=== PATIENT | male | born 1960 | race Caucasian/White ===

== ENCOUNTER 2025-02-15 19:24 | Observation (INO) ==
[2025-02-15] MEDS: fentaNYL citrate PF 100 MCG/2 ML VIAL IV STA ×2 (20:04→20:51)
[2025-02-15 20:14] LABS: Basophils # (auto) 0.05 K/uL (0.00-0.20); Basophils % (auto) 0.4 %; Eosinophils % (auto) 0.8 %; Hematocrit (blood only) 46.9 % (42.0-52.0); Hemoglobin 16.4 g/dl (14.0-18.0); Immature Granulocytes # (auto) 0.04 K/uL (0.01-0.20); Immature Granulocytes % (auto) 0.3 %; Lymphocytes # (auto) 2.93 K/uL (1.20-3.40); Lymphocytes % (auto) 22.4 %; Mean Corpuscular Hemoglobin 30.9 pg (25.0-34.0); Mean Corpuscular Volume 88.5 fL (80.0-100.0); Mean Platelet Volume 9.4 fL (9.4-12.4); Monocytes # (auto) 1.35 K/uL (0.11-0.59); Monocytes % (auto) 10.3 %; Neutrophils % (auto) 65.8 %; Platelet Count 551 K/uL (130-400); RDW Coefficient of Variation 13.4 % (11.5-14.5); RDW Standard Deviation 43.6 fL (36.4-46.3); White Blood Count 13.07 K/ul (4.8-10.8)
--- NOTE | 2025-02-15 20:22 | Emergency Department Note ---
Impression & Plan Left lateral abdominal pain, Chronic pain syndrome, Nausea ED Provider Note Provider: Artem Porter MD CHIEF COMPLAINT: Left abdominal pain and nausea HISTORY OF PRESENT ILLNESS: Patient is a 64-year-old gentleman significant history of postherpetic neuralgia from shingles outbreak on his left abdomen and flank in 2021 presenting here today complaining of severe pain here with associated nausea. No new trauma or syncope. Limited intake over the past week. Has been through extensive evaluation in the past including spinal injections and pain management as well as a spinal stimulator placed in December. This has actually worsened thing although there was some improvement with the temporary spinal stimulator. Has been using Lyrica without improvement. Using Zofran at home for nausea. States he is having decreased intake over the past week. Stimulators been turned off for the past week in consultation with the stimulator in store representative. Pain is just too severe. PAST MEDICAL HISTORY: As noted above MEDICATIONS: Reviewed home medication SOCIAL HISTORY: PHYSICAL EXAM: GENERAL: alert and oriented a bit tremulous anduncomfortable in appearance curled in a ball in the stretcher. Head: normocephalic and atraumatic EYES: No injection, discharge or icterus. NECK: Trachea midline. ENT: Mucous membranes pink and moist. LUNGS: Airway patent. No retractions. Breath sounds clear with good air entry bilaterally. HEART: Regular rate and rhythm. No chest wall tenderness ABDOMEN: Soft maybe some very slight left-sided abdominal tenderness. No distention. SKIN: Acyanotic, warm, dry, without rashes EXTREMITIES: Without swelling, tenderness or deformity NEUROLOGICAL: No focal deficits. No aphasia. No facial droop or slurred speech. Normal strength and tone in the extremities. Sensation to gross touch normal. EK bpm normal sinus rhythm. No PVC or PAC. No acute ST segment elevation or depression with left intrafascicular block and QTc 431. CONTINUOUS CARDIAC MONITORING: was ordered and showed a heart rate of 50s-70s bpm in normal sinus rhythm/sinus bradycardia PDMP was checked without noted issue. Patient's laboratory studies and imaging reviewed. Differential includes post herpetic neuralgia appendicitis, infections, diverticulitis, UTI, obstruction, mesenteric ischemia, aortic pathology, inflammatory bowel disease, renal colic, PUD, pancreatitis, biliary pathology, hernia, volvulus, constipation, as well as other pathologies. IMPRESSION/MEDICAL DECISION MAKING: No trauma history. Patient is significant discomfort. Seems likely exacerbation of his underlying postherpetic neuralgia given location and history. Surgery in December but no other significant neurodeficit reported. Does not seem altered or meningitic. Will complete basic labs and a CT scan to exclude other occult pathology such as diverticulitis, perforation, or obstruction as well as basic blood work here. Given some IV fluid and pain medicine and nausea medicine. Some hand cramping reported with a blood pressure cuff and questionably may have an electrolyte issue. No reported chest pain or significant shortness of breath and doubt cardiac pulmonary etiology. Blood work here today without thrombocytopenia (actually mild thrombocytosis) or anemia. Mild leukocytosis of 13 nonspecific. Electrolytes troponin and creatinine lipase without significant abnormality indicative of acute kidney injury, heart injury, pancreatitis noted. No transaminitis concerning for liver issues today. UA not indicative of infection. Is a bit concentrated again receiving IV fluids here. No severe again electrolyte abnormalities noted. Ketamine infusion are lysed as he still with significant pain. Pain improved greatly but the patient still with some nausea and feeling like he is quivering. Given some Reglan. Given his intractable symptoms discussed with the hospitalist team for further care and observation. Given the hour some delay for radiology read of his abdomen pelvis scan. DIAGNOSIS: Intractable left abdominal/flank pain, nausea, hypomagnesemia DISPOSITION: Hospitalist will evaluate Patient was agreeable with this plan. Past Med/Surg History Problem List (Updated 02/16/25 @ 00:31 by Artem Porter M.D.) Nausea (Acute) Left lateral abdominal pain (Acute) Chronic pain syndrome (Acute) Tinnitus ETD (eustachian tube dysfunction) Ear fullness Dyslipidemia Postherpetic neuralgia DJD of left shoulder Medical History Herpes zoster Surgical History S/P splenectomy S/P arthroscopy of right shoulder Family History Mother Stroke Hypertension Other Esophageal cancer No family history of adverse response to anesthesia No family history of bleeding disorder Denies family history of Prostate cancer Breast cancer Asthma Social History Smoking Status: Never smoker Second Hand Exposure: No; Do You Dip or Chew Tobacco: No; Hx Alcohol Use: Yes Alcohol type: beer and wine Alcohol Intake Frequency: Monthly or Less Hx Substance Use: No Preferred Language: [place] Hearing Ability: Normal marital status: / Current Living Situation: Alone current occupational status: retired Feels Safe at Home: Yes Diet: regular caffeine: Yes Dental Care, Regularly: Yes Physical Activity Frequency: 5-6 Times per Week Seatbelt Use: always Sunscreen Use: No Assistive Devices: None Allergies Allergies Allergy/AdvReac Type Severity Reaction Status Date / Time procaine Allergy Unknown swelling Verified 12/26/24 13:22 as a child Home Meds Home Medications Medication Instructions Recorded Confirmed acetaminophen 500 mg tablet 1,000 mg PO Q6H PRN Pain 06/11/24 02/16/25 rosuvastatin 5 mg tablet 5 mg PO DAILY 06/11/24 02/16/25 ondansetron 4 mg disintegrating 12 mg translingual .EVERY 24 HOURS 02/15/25 02/15/25 tablet Previous Rx's Medication Instructions Recorded lidocaine 5 % topical patch 1 patch topical DAILY #30 ea 01/19/24 naproxen 500 mg tablet (Naprosyn) 500 mg PO BID PRN pain #30 tabs 09/17/24 pregabalin 200 mg capsule 200 mg PO Q12H #60 caps 10/05/24 Results & Data (ED) Vital Signs Vital Signs - 24 hr 02/15/25 19:26 02/15/25 20:31 02/15/25 20:48 Temperature 36.8 C Temperature Source Oral Pulse Rate 96 H 72 Pulse Rate [Apical] Pulse Rhythm [Apical] Pulse Strength [Apical] Respiratory Rate 18 Respiratory Effort / Characteristics Non-Labored Spontaneous Respiratory Depth Normal Respiratory Pattern Regular Blood Pressure 155/98 H 137/83 Blood Pressure [Left Arm] Blood Pressure Mean 117 106 Blood Pressure Mean [Left Arm] Blood Pressure Position [Left Arm] Pulse Oximetry 98 Oxygen Delivery Method Room Air Oxygen Flow Rate Sepsis Recent Fever Within 48 Hours No Sepsis New/Unexplained Change in Mental Status N/A Sepsis Action Taken by Nursing No Action Required End-Tidal CO2 02/15/25 20:51 02/15/25 20:54 02/15/25 21:02 Temperature Temperature Source Pulse Rate 60 Pulse Rate [Apical] 59 L Pulse Rhythm [Apical] Regular Pulse Strength [Apical] Normal Respiratory Rate 23 Respiratory Effort / Characteristics Non-Labored Respiratory Depth Normal Respiratory Pattern Regular Blood Pressure 137/80 Blood Pressure [Left Arm] 137/83 Blood Pressure Mean 102 Blood Pressure Mean [Left Arm] 101 Blood Pressure Position [Left Arm] Lying Pulse Oximetry 95 95 Oxygen Delivery Method Room Air Room Air Oxygen Flow Rate Sepsis Recent Fever Within 48 Hours Sepsis New/Unexplained Change in Mental Status Sepsis Action Taken by Nursing End-Tidal CO2 02/15/25 21:27 02/15/25 21:30 02/15/25 22:00 Temperature Temperature Source Pulse Rate 57 L 54 L 57 L Pulse Rate [Apical] Pulse Rhythm [Apical] Pulse Strength [Apical] Respiratory Rate 21 20 24 Respiratory Effort / Characteristics Respiratory Depth Respiratory Pattern Blood Pressure 127/79 Blood Pressure [Left Arm] Blood Pressure Mean 95 Blood Pressure Mean [Left Arm] Blood Pressure Position [Left Arm] Pulse Oximetry 94 95 94 Oxygen Delivery Method Room Air Room Air Room Air Oxygen Flow Rate Sepsis Recent Fever Within 48 Hours Sepsis New/Unexplained Change in Mental Status Sepsis Action Taken by Nursing End-Tidal CO2 02/15/25 22:30 02/15/25 22:32 02/15/25 22:33 Temperature Temperature Source Pulse Rate 86 58 L Pulse Rate [Apical] Pulse Rhythm [Apical] Pulse Strength [Apical] Respiratory Rate 20 18 Respiratory Effort / Characteristics Respiratory Depth Respiratory Pattern Blood Pressure 129/74 Blood Pressure [Left Arm] Blood Pressure Mean 89 Blood Pressure Mean [Left Arm] Blood Pressure Position [Left Arm] Pulse Oximetry 93 96 Oxygen Delivery Method Room Air Nasal Cannula Oxygen Flow Rate 2 Sepsis Recent Fever Within 48 Hours Sepsis New/Unexplained Change in Mental Status Sepsis Action Taken by Nursing End-Tidal CO2 02/15/25 23:40 02/15/25 23:45 02/15/25 23:50 Temperature Temperature Source Pulse Rate Pulse Rate [Apical] 68 63 67 Pulse Rhythm [Apical] Pulse Strength [Apical] Respiratory Rate 24 24 18 Respiratory Effort / Characteristics Non-Labored Spontaneous Non-Labored Spontaneous Non-Labored Spontaneous Respiratory Depth Normal Normal Normal Respiratory Pattern Regular Regular Regular Blood Pressure Blood Pressure [Left Arm] 123/84 124/85 130/90 Blood Pressure Mean Blood Pressure Mean [Left Arm] 97 98 103 Blood Pressure Position [Left Arm] Pulse Oximetry 97 96 96 Oxygen Delivery Method Nasal Cannula Nasal Cannula Nasal Cannula Oxygen Flow Rate 2 2 2 Sepsis Recent Fever Within 48 Hours Sepsis New/Unexplained Change in Mental Status Sepsis Action Taken by Nursing End-Tidal CO2 27 30 28 02/15/25 23:55 02/16/25 00:00 02/16/25 00:05 Temperature Temperature Source Pulse Rate Pulse Rate [Apical] 62 65 58 L Pulse Rhythm [Apical] Pulse Strength [Apical] Respiratory Rate 20 16 20 Respiratory Effort / Characteristics Non-Labored Non-Labored Spontaneous Non-Labored Spontaneous Respiratory Depth Normal Normal Normal Respiratory Pattern Regular Regular Regular Blood Pressure Blood Pressure [Left Arm] 137/91 141/87 H 137/81 Blood Pressure Mean Blood Pressure Mean [Left Arm] 106 105 99 Blood Pressure Position [Left Arm] Pulse Oximetry 97 97 97 Oxygen Delivery Method Nasal Cannula Nasal Cannula Nasal Cannula Oxygen Flow Rate 2 2 2 Sepsis Recent Fever Within 48 Hours Sepsis New/Unexplained Change in Mental Status Sepsis Action Taken by Nursing End-Tidal CO2 30 31 28 02/16/25 00:10 Temperature Temperature Source Pulse Rate Pulse Rate [Apical] 83 Pulse Rhythm [Apical] Pulse Strength [Apical] Respiratory Rate 18 Respiratory Effort / Characteristics Non-Labored Spontaneous Respiratory Depth Normal Respiratory Pattern Regular Blood Pressure Blood Pressure [Left Arm] 117/88 Blood Pressure Mean Blood Pressure Mean [Left Arm] 97 Blood Pressure Position [Left Arm] Pulse Oximetry 96 Oxygen Delivery Method Nasal Cannula Oxygen Flow Rate 2 Sepsis Recent Fever Within 48 Hours Sepsis New/Unexplained Change in Mental Status Sepsis Action Taken by Nursing End-Tidal CO2 29 Laboratory Data 02/15/25 19:52 02/15/25 21:01 Lab Results 02/15/25 02/15/25 02/15/25 Range/Units 19:52 20:23 21:01 WBC 13.07 H (4.8-10.8) K/ul RBC 5.30 (4.70-6.10) M/uL Hgb 16.4 (14.0-18.0) g/dl POC Hgb 16.0 (14.0-18.0) g/dl Hct 46.9 (42.0-52.0) % POC Hct 47 (42-52) % MCV 88.5 (80.0-100.0) fL MCH 30.9 (25.0-34.0) pg MCHC 35.0 (32.0-36.0) g/dL RDW Std Deviation 43.6 (36.4-46.3) fL RDW Coeff of Torri 13.4 (11.5-14.5) % Plt Count 551 H (130-400) K/uL MPV 9.4 (9.4-12.4) fL Immature Gran % (Auto) 0.3 % Neut % (Auto) 65.8 % Lymph % (Auto) 22.4 % [place] % (Auto) 10.3 % Eos % (Auto) 0.8 % Baso % (Auto) 0.4 % Neut # (Auto) 8.60 H (1.40-6.50) K/uL Lymph # (Auto) 2.93 (1.20-3.40) K/uL [place] # (Auto) 1.35 H (0.11-0.59) K/uL Eos # (Auto) 0.10 (0.00-0.50) K/uL Baso # (Auto) 0.05 (0.00-0.20) K/uL Immature Gran # (Auto) 0.04 (0.01-0.20) K/uL PT 10.3 (9.0-12.0) Seconds INR 0.9 (0.9-1.1) POC Sodium 143 (135-144) mmol/L Sodium Cancelled 140 POC Potassium 3.9 (3.3-5.0) mmol/L Potassium Cancelled 3.7 POC Chloride 108 (101-112) mmol/L Chloride Cancelled 110 H Carbon Dioxide Cancelled 21 POC Total CO2 20 L (24-31) mmol/L Anion Gap Cancelled 9 POC Anion Gap 20.0 (16-25) mmol/L POC BUN 14 (7-18) mg/dl BUN Cancelled 14 Creatinine Cancelled 0.92 POC Creatinine 1.0 (0.6-1.3) mg/dl Est Cr Clr Drug Dosing Cancelled 69.6 eGFR Cancelled 92.31 BUN/Creatinine Ratio Cancelled 15.2 Glucose Cancelled 96 POC Glucose (other) 106 H (70-99) mg/dl Calcium Cancelled 9.2 POC Ioniz Calcium Janet 1.19 (1.12-1.32) mmol/l Magnesium Cancelled 1.6 L Total Bilirubin Cancelled 0.6 AST Cancelled 16 ALT Cancelled 11 Alkaline Phosphatase Cancelled 67 Troponin I High Sens 4.1 (0-20) pg/ml Total Protein Cancelled 6.2 Albumin Cancelled 4.0 Globulin Cancelled 2.2 L Albumin/Globulin Ratio Cancelled 1.8 Lipase 22 (11-82) U/L Urine Color Urine Appearance (Clear) Urine pH (4.5-7.5) Ur Specific Olive (1.000-1.030) Urine Protein (Negative) Urine Glucose (UA) (Negative) Urine Ketones (Negative) Urine Blood (Negative) Urine Nitrite (Negative) Urine Bilirubin (Negative) Urine Urobilinogen (Negative) Ur Leukocyte Esterase (Negative) Urine WBC (Auto) (0-5) /hpf Urine RBC (Auto) (0-2) /hpf U Hyaline Cast (Auto) (0-2) /lpf U Epithel Cells (Auto) (0-2) /hpf Urine Bacteria (Auto) (None Seen) Urine Comment 02/15/25 Range/Units 21:55 WBC (4.8-10.8) K/ul RBC (4.70-6.10) M/uL Hgb (14.0-18.0) g/dl POC Hgb (14.0-18.0) g/dl Hct (42.0-52.0) % POC Hct (42-52) % MCV (80.0-100.0) fL MCH (25.0-34.0) pg MCHC (32.0-36.0) g/dL RDW Std Deviation (36.4-46.3) fL RDW Coeff of Torri (11.5-14.5) % Plt Count (130-400) K/uL MPV (9.4-12.4) fL Immature Gran % (Auto) % Neut % (Auto) % Lymph % (Auto) % [place] % (Auto) % Eos % (Auto) % Baso % (Auto) % Neut # (Auto) (1.40-6.50) K/uL Lymph # (Auto) (1.20-3.40) K/uL [place] # (Auto) (0.11-0.59) K/uL Eos # (Auto) (0.00-0.50) K/uL Baso # (Auto) (0.00-0.20) K/uL Immature Gran # (Auto) (0.01-0.20) K/uL PT (9.0-12.0) Seconds INR (0.9-1.1) POC Sodium (135-144) mmol/L Sodium POC Potassium (3.3-5.0) mmol/L Potassium POC Chloride (101-112) mmol/L Chloride Carbon Dioxide POC Total CO2 (24-31) mmol/L Anion Gap POC Anion Gap (16-25) mmol/L POC BUN (7-18) mg/dl BUN Creatinine POC Creatinine (0.6-1.3) mg/dl Est Cr Clr Drug Dosing eGFR BUN/Creatinine Ratio Glucose POC Glucose (other) (70-99) mg/dl Calcium POC Ioniz Calcium Janet (1.12-1.32) mmol/l Magnesium Total Bilirubin AST ALT Alkaline Phosphatase Troponin I High Sens (0-20) pg/ml Total Protein Albumin Globulin Albumin/Globulin Ratio Lipase (11-82) U/L Urine Color Yellow Urine Appearance Clear (Clear) Urine pH 7.0 (4.5-7.5) Ur Specific [place] > 1.045 H (1.000-1.030) Urine Protein Negative (Negative) Urine Glucose (UA) Negative (Negative) Urine Ketones 2+ H (Negative) Urine Blood Trace H (Negative) Urine Nitrite Negative (Negative) Urine Bilirubin Negative (Negative) Urine Urobilinogen Negative (Negative) Ur Leukocyte Esterase Negative (Negative) Urine WBC (Auto) 0-5 (0-5) /hpf Urine RBC (Auto) 3-5 H (0-2) /hpf U Hyaline Cast (Auto) 0-2 (0-2) /lpf U Epithel Cells (Auto) 0-2 (0-2) /hpf Urine Bacteria (Auto) None Seen (None Seen) Urine Comment Administered Medications Discontinued Medications Fentanyl Citrate (Fentanyl Citrate Pf 100 Mcg/2 Ml Vial) 50 mcg IV NOW STA Stop: 02/15/25 19:55 Last Admin: 02/15/25 20:04 Dose: 50 mcg Documented By: BRANDON Fentanyl Citrate (Fentanyl Citrate Pf 100 Mcg/2 Ml Vial) 100 mcg IV NOW STA Stop: 02/15/25 20:15 Last Admin: 02/15/25 20:51 Dose: 100 mcg Documented By: EDIE Sodium Chloride (Nss) 1,000 mls @ 999 mls/hr IV .Q1H1M ONE Stop: 02/15/25 21:20 Last Infusion: 02/15/25 21:48 Dose: Infused Documented By: Admin: 02/15/25 20:49 Dose: 999 mls/hr Documented By: EDIE Magnesium Sulfate/Dextrose (Magnesium Sulfate / D5w) 1 gm in 100 mls @ 200 mls/hr IV Q30M JOHNSON Stop: 02/15/25 23:29 Last Admin: 02/16/25 00:08 Dose: 200 mls/hr Documented By: Infusion: 02/15/25 23:23 Dose: Infused Documented By: Admin: 02/15/25 22:34 Dose: 200 mls/hr Documented By: MICHAEL Ketamine HCl 15 mg/ Sodium (Chloride) 50.3 mls @ 301.8 mls/hr IV NOW ONE Stop: 02/15/25 22:35 Last Infusion: 02/15/25 23:53 Dose: Infused Documented By: NELIA Co-signed By: SHUKRI Admin: 02/15/25 23:42 Dose: 301.8 mls/hr Documented By: NELIA Co-signed By: XUAN Ioversol (Optiray 320 100ml) 90 ml IV ONCE ONE Stop: 02/15/25 20:36 Last Admin: 02/15/25 20:36 Dose: 90 ml Documented By: RIGO Ondansetron HCl (Ondansetron Inj 2 Mg/Ml 2 Ml Vial) 4 mg IV NOW STA Stop: 02/15/25 20:15 Last Admin: 02/15/25 20:51 Dose: 4 mg Documented By: EDIE Ondansetron HCl (Ondansetron Inj 2 Mg/Ml 2 Ml Vial) 4 mg IV NOW STA Stop: 02/15/25 22:31 Last Admin: 02/15/25 23:14 Dose: 4 mg Documented By: MICHAEL Discharge Plan Visit Data Chief Complaint: Abdominal Pain Stated Complaint: PAIN, SHAKING, SWEATING, NAUSEA ED Provider: Artem Porter Discharge Problem: Left lateral abdominal pain, Chronic pain syndrome, Nausea Patient Disposition: Being Evaluated by Hospitalist Condition: Fair Forms Stand Alone Forms: [facility] Prescriptions Prescriptions: No Action pregabalin 200 mg capsule 200 mg PO Q12H Qty: 60 5RF lidocaine 5 % adhesive patch,medicated 1 patch topical DAILY Qty: 30 5RF Rx Instructions: leave on most painful area for up to 12 hrs, ok to put on before bed. naproxen [Naprosyn] 500 mg tablet 500 mg PO BID PRN (Reason: pain) Qty: 30 2RF acetaminophen [Tylenol Ex Str Rapid Release] 500 mg Tablet 1,000 mg PO Q6H PRN (Reason: Pain) Rx Instructions: Patient alternates between tylenol, lidocaine patches, and Aleve due to lasting pain from shingles. rosuvastatin 5 mg tablet 5 mg PO DAILY ondansetron 4 mg tablet,disintegrating 12 mg translingual .EVERY 24 HOURS Referrals Referrals: Taj Marcano MD [Primary Care Provider] -
[2025-02-15 20:35] LABS: iSTAT Ionized Calcium 1.19 mmol/l (1.12-1.32); iSTAT Potassium 3.9 mmol/L (3.3-5.0)
[2025-02-15] MEDS: OPTIRAY 320 100ml IV ONE (20:36)
[2025-02-15 20:40] LABS: Troponin I High Sensitivity 4.1 pg/ml (0-20)
[2025-02-15 20:45] LABS: INR 0.9 (0.9-1.1); Prothrombin Time 10.3 Seconds (9.0-12.0)
[2025-02-15] MEDS: SODIUM CHLORIDE 0.9% 1,000 ML IV ONE (20:49)
[2025-02-15] MEDS: ONDANSETRON INJ 2 MG/ML 2 ML VIAL IV STA ×2 (20:51→23:14)
[2025-02-15 21:30] LABS: Albumin Globulin Ratio 1.8 (0.9-2); BUN Creatinine Ratio 15.2 (10-20); Bilirubin,Total 0.6 mg/dl (0.2-1.0); Calcium 9.2 mg/dl (8.6-10.3); Creatinine Clr Calc Pharmacy 69.6 ml/min; Globulin 2.2 gm/dl (2.5-4.0); Magnesium 1.6 mg/dl (1.7-2.4); Potassium 3.7 mmol/L (3.5-5.1); Total Protein 6.2 gm/dl (6.0-8.3)
[2025-02-15 22:10] LABS: Appearance Urine Clear (Clear); Bacteria Urine Automated None Seen (None Seen); Bilirubin Urine Negative (Negative); Blood Urine Trace (Negative); Cast Urine Automated 0-2 /lpf (0-2); Color Urine Yellow; Epithelial Cell Urine Auto 0-2 /hpf (0-2); Glucose Urine UA Negative (Negative); Ketones Urine 2+ (Negative); Leukocyte Esterase Urine Negative (Negative); Nitrite Urine Negative (Negative); Protein Urine Negative (Negative); Specific Gravity Urine > 1.045 (1.000-1.030); Urobilinogen Urine Negative (Negative); WBC Urine Automated 0-5 /hpf (0-5)
[2025-02-15] MEDS: MAGNESIUM SULFATE / D5W 1 GM/100 ML BAG IV SCH (22:34)
[2025-02-15] MEDS ORDERED: STAT IV/IM STA (22:34)
[2025-02-15] MEDS: KETAMINE HCL IV ONE (23:42)
[2025-02-15] MEDS: SODIUM CHLORIDE 0.9% IV ONE (23:42)
--- NOTE | 2025-02-16 00:21 | History & Physical Report ---
Date of Service February 16, 2025 Assessment & Plan (1) Chronic pain syndrome: Plan: 64-year-old male with chronic postherpetic left-sided thoracic neuralgia who presents with acute on chronic pain. Pain is severe enough that he has not been able to eat and has been shaking from pain and is not able to function at home. He is admitted for acute pain control and pain management consultation if needed. Postherpetic neuralgia, chronic pain syndrome Recurrence of pain consistent with known neuralgia, identical territory as prior S/p spinal stimulator without significant improvement in symptoms. Patient was turned off as it actually greatly worsened his symptoms and he could not tolerate for more than 4 hours at a time - Insignificant improvement on Lyrica, no improvement with gabapentin which is no longer continued. Topical capsaicin made the pain much worse Reports he thinks he tried a very short course of amitriptyline in the past and this made him feel shaky, but notes that he was not sure that this was the medicine. His reports he never really gave this a try and given the severity of his pain would like to trial this as adjunct treatment. Started on 10 mg daily. He notes that when he tried this for very short time he was under the care of [facility], they do not remember if he had a bad reaction to this or just had shaking with his pain. Can call [facility] 02/17 during daylight to clarify. Tylenol, Toradol every 6 hours, scaled hydromorphone for acute pain overnight Continue lidocaine patch CTA/P with no evidence of acute abnormality in abdomen/pelvis. Thoracic spinal stimulator noted suspected. Mild fat stranding/scarring consistent with postsurgical change and no evidence of enhancing fluid collection. No tenderness to palpation no erythema, warmth, fluctuance or pain overlying his thoracic port site or stimulator to suggest infection. Leukocytosis 13.7 without granulocytic left shift. Suspect from demargination. Afebrile. CTA/P as above, no clinical evidence of hardware infection on exam CBC daily Follow fever curve Afebrile, blood cultures and treat empirically with vancomycin/Rocephin Hypomagnesemia Repleted Hyperlipidemia Statin continued DVT prophylaxis: SCDs. Lovenox. CODE STATUS: DNR/DNI Disposition: Medical telemetry for post ketamine monitoring. If stable then downgrade to MSO. Diet: Regular (2) Left lateral abdominal pain: (3) Postherpetic neuralgia: History of Present Illness Primary Care Provider: Taj Marcano MD Ki is a 64-year-old male with a past medical history of postherpetic neuralgia from a shingles outbreak in 2021 with residual pain in his left abdomen and flank recurrent and persistent with multiple modalities of treatment including spinal injections, Lyrica, and a spinal stimulator. Patient reports that he has had a flare of his pain which is too severe to function at home and presents for acute on chronic pain management. While in the ER he has received 2 doses of fentanyl and a dose of ketamine without enough improvement in his pain to allow daily function. He has been recommended for admission and pain management consultation. Ki is seen with his . Reports several years ago had a terrible case of shingles. Has had chronic pain since then had injections with [facility] has tried gabapentin, multiple pain medicine, compounded creams, lyrica without good control had a stimulator trial which did well initially but since placed has not been able to find an appropriate setting and felt sore, as soon as he would turn it one within 4 hours the pain would actually intensify and had to have it turned off. Was told to try and get to 4 days, but could not even get to 4 hours due to severe worsening of pain. Did discuss with the device rep Billy and was told to shut it off for a while. has not gotten better enough to trial it again. this morning about 4am pain has been severe enough to make him nauseous, has not been eating or drinkign in the last 2 days and feels very dehydrated. Feels the pain gets so bad he shakes, and has been nauseus from pain although denies actual stomach pain. Pain is at left LEFT back/flank and wraps around to the belly button. No change in location/distrubtion No fevers. Has been shaking from pain, but denies chills. Gets sweaty when th epain increases Pending an MRI for followup in March No chest pain No chest pressure No dyspnea Medical History: Reviewed Medications: Reviewed Surgical History: Reviewed Family history: Reviewed Allergies: Reviewed Social History: No tobacco, no ETOH Code Status: DNR/DNI Allergies Allergy/AdvReac Type Severity Reaction Status Date / Time procaine Allergy Unknown swelling Verified 12/26/24 13:22 as a child Home Medications Medication Instructions Recorded Confirmed Type lidocaine 5 % topical patch 1 patch topical DAILY #30 ea 01/19/24 02/16/25 Rx acetaminophen 500 mg tablet 1,000 mg PO Q6H PRN Pain 06/11/24 02/16/25 History rosuvastatin 5 mg tablet 5 mg PO DAILY 06/11/24 02/16/25 History naproxen 500 mg tablet (Naprosyn) 500 mg PO BID PRN pain #30 tabs 09/17/24 02/16/25 Rx pregabalin 200 mg capsule 200 mg PO Q12H #60 caps 10/05/24 02/15/25 Rx ondansetron 4 mg disintegrating 12 mg translingual .EVERY 24 HOURS 02/15/25 02/15/25 History tablet Past Med/Surg History Problem List (Updated 02/16/25 @ 00:31 by Artem Porter M.D.) Nausea (Acute) Left lateral abdominal pain (Acute) Chronic pain syndrome (Acute) Tinnitus ETD (eustachian tube dysfunction) Ear fullness Dyslipidemia Postherpetic neuralgia DJD of left shoulder Medical History Herpes zoster Surgical History S/P splenectomy S/P arthroscopy of right shoulder Family History Mother Stroke Hypertension Other Esophageal cancer No family history of adverse response to anesthesia No family history of bleeding disorder Denies family history of Prostate cancer Breast cancer Asthma Social History Smoking Status: Never smoker Second Hand Exposure: No; Do You Dip or Chew Tobacco: No; Hx Alcohol Use: Yes Alcohol type: beer and wine Alcohol Intake Frequency: Monthly or Less Hx Substance Use: No Preferred Language: Thai Hearing Ability: Normal marital status: / Current Living Situation: Alone current occupational status: retired Feels Safe at Home: Yes Diet: regular caffeine: Yes Dental Care, Regularly: Yes Physical Activity Frequency: 5-6 Times per Week Seatbelt Use: always Sunscreen Use: No Assistive Devices: None Physical Exam Physical Exam: General: A&Ox3. Cooperative. Appears in pain. HEENT: Atraumatic, normocephalic. Vision and hearing grossly intact Pulm: CTAB A&P. -wheezes, -rales, -rhonchi. Symmetrical chest rise. No increased work of breathing. No respiratory distress. Cardiac: RRR, -mrg. Radial pulses intact and symmetrical. Abdominal: endorses hyperesthesia of the skin from left lumbar back wrapping aroudn to his belly button. Denies abd pain on RLQ palpation, palpation at the LLQ makes his chronic pain worse. No rebound/guarding Skin: Midline thoracic incision well healing. Spinal stimulator generator well healing, no fluctuance or overlying erythema warmth or tenderness. Ext: 5/5 systems developer, elbow flexion, knee flexion, knee extension, ankle dorsiflexion/plantarflexion. Sensation is intact to soft touch in hands and feet Results & Data Results & Data Vital Signs (Past 12 Hours) Vital Signs Temp Pulse Pulse Resp BP BP Pulse Ox 02/16/25 00:10 83 18 117/88 96 02/16/25 00:05 58 L 20 137/81 97 02/16/25 00:00 65 16 141/87 H 97 02/15/25 23:55 62 20 137/91 97 02/15/25 23:50 67 18 130/90 96 02/15/25 23:45 63 24 124/85 96 02/15/25 23:40 68 24 123/84 97 02/15/25 22:33 129/74 02/15/25 22:32 58 L 18 96 02/15/25 22:30 86 20 93 02/15/25 22:00 57 L 24 94 02/15/25 21:30 54 L 20 127/79 95 02/15/25 21:27 57 L 21 94 02/15/25 21:02 137/80 02/15/25 20:54 60 95 02/15/25 20:51 59 L 23 137/83 95 02/15/25 20:48 137/83 02/15/25 20:31 72 02/15/25 19:26 36.8 C 96 H 18 155/98 H 98 O2 Del Method O2 Flow Rate 02/16/25 00:10 Nasal Cannula 2 02/16/25 00:05 Nasal Cannula 2 02/16/25 00:00 Nasal Cannula 2 02/15/25 23:55 Nasal Cannula 2 02/15/25 23:50 Nasal Cannula 2 02/15/25 23:45 Nasal Cannula 2 02/15/25 23:40 Nasal Cannula 2 02/15/25 22:33 02/15/25 22:32 Nasal Cannula 2 02/15/25 22:30 Room Air 02/15/25 22:00 Room Air 02/15/25 21:30 Room Air 02/15/25 21:27 Room Air 02/15/25 21:02 02/15/25 20:54 Room Air 02/15/25 20:51 Room Air 02/15/25 20:48 02/15/25 20:31 02/15/25 19:26 Room Air PG Care Time/CCT Total # of Minutes Spent Total Time Spent with Patient: Total time spent is greater than 50% in coordination of care (as documented) at patient's floor/unit and/or counseling patient: Coding Level of Care Code 44184 INT INP/OBS CARE 3/75MIN Diagnoses Chronic pain syndrome G89.4 Left lateral abdominal pain R10.9 Postherpetic neuralgia B02.29
[2025-02-16] MEDS: SODIUM CHLORIDE 0.9% 500 ML IV ONE (00:40)
[2025-02-16] MEDS: METOCLOPRAMIDE HCL INJ 5 MG/ML 2 ML VIAL IV ONE (00:41)
--- NOTE | 2025-02-16 00:46 | CT Scan Report ---
Exam(s): CT ABDOMEN + PELVIS With Contrast IV Amt: 90 ml optiray 320 EXAM: CT Abdomen and Pelvis With Intravenous Contrast CLINICAL HISTORY: Reason for exam: L abd flank pain. TECHNIQUE: Axial computed tomography images of the abdomen and pelvis with intravenous contrast. CTDI is 16.24 mGy and DLP is 767.6 mGy-cm. Automated exposure control was utilized for the study. A dose lowering technique was utilized adhering to the principles of ALARA. CONTRAST: Patient received 90 ml optiray 320 of IV contrast COMPARISON: CT Abdomen Pelvis dated 06/11/2024 FINDINGS: Artifacts: Some motion artifact. Lung bases: Unremarkable. No mass. No consolidation. ABDOMEN: Liver: Unremarkable. No mass. Gallbladder and bile ducts: Unremarkable. No calcified stones. No ductal dilation. Pancreas: Unremarkable. No mass. No ductal dilation. Spleen: Unremarkable. No splenomegaly. Adrenals: Unremarkable. No mass. Kidneys and ureters: Low-attenuation focus stable left kidney which may be due to a cyst but is too small to characterize. No follow-up is necessary. No hydronephrosis. Stomach and bowel: Colonic diverticulosis. No obstruction. No mucosal thickening. PELVIS: Appendix: Normal appendix. Bladder: Unremarkable. No mass. Reproductive: Unremarkable as visualized. ABDOMEN and PELVIS: Intraperitoneal space: Unremarkable. No free air. No significant fluid collection. Bones/joints: Multilevel degenerative changes. Mild dextroscoliosis of the lumbar spine. Likely moderate to severe foraminal stenoses at the L4-S1 levels. No acute fracture. No dislocation. Soft tissues: See below. Small focal defect of the left posterolateral hemidiaphragm with herniation of fat. Similar to the prior. No bowel involvement. Vasculature: Unremarkable. No abdominal aortic aneurysm. Lymph nodes: Unremarkable. No enlarged lymph nodes. Tubes, lines and devices: Interval placement of thoracic spinal stimulator, partially visualized. Generator pack in the left paraspinal subcutaneous tissues at the L2 level. Partial resection of the T8 spinous process and associated mild fat stranding/scarring. Likely postsurgical changes. No discrete rim-enhancing fluid collection. IMPRESSION: 1. No evidence of acute abnormality in the abdomen and pelvis. 2. Interval placement of thoracic spinal stimulator, partially visualized as above. 3. Multilevel degenerative changes. Mild dextroscoliosis of the lumbar spine. Likely moderate to severe foraminal stenoses at the L4-S1 levels. 4. Colonic diverticulosis. 5. Small left diaphragmatic hernia/Bochdalek hernia containing fat. Electronically signed by: Robel Thakur M.D. 02/16/25 00:44 AM
[2025-02-16] MEDS ORDERED: ONDANSETRON INJ 2 MG/ML 2 ML VIAL IV PRN (01:06)
[2025-02-16] MEDS: LACTATED RINGER'S 1,000 ML IV SCH (01:22)
[2025-02-16] MEDS: HYDROmorphone INJ 1 MG/ML SYRINGE IV PRN (01:52)
[2025-02-16] MEDS: PROCHLORPERAZINE 5 MG in SYRINGE 4 ML IV ONE (02:57)
[2025-02-16] MEDS: ROSUVASTATIN CALCIUM 5 MG TAB PO SCH (08:15)
[2025-02-16] MEDS: ENOXAPARIN INJ 40 MG/0.4 ML SYR SQ SCH (08:15)
[2025-02-16] MEDS: AMITRIPTYLINE HCL 10 MG TAB PO SCH (08:15)
[2025-02-16] MEDS: LIDOCAINE 5% 1 PATCH TD SCH (08:15)
[2025-02-16] MEDS: PREGABALIN 100 MG CAP PO SCH (08:17)
[2025-02-16] MEDS: ACETAMINOPHEN 325 MG TAB PO PRN (08:31)
[2025-02-16] MEDS: KETOROLAC TROMETHAMINE 15 MG/ML VIAL IV PRN (08:31)
--- NOTE | 2025-02-16 11:37 | Hospitalist Progress Note ---
Date of Service February 16, 2025 Assessment & Plan (1) Chronic pain syndrome: Plan: Left thorax area due to postherpetic neuralgia. He has had previous spine stimulator, Lyrica, gabapentin, capsaicin cream without apparent benefit. He came to the ED because the pain was so bad he was anorexic. He has now been placed on amitriptyline. (2) Postherpetic neuralgia: Plan: Producing chronic pain. He has had multiple therapeutic attempts including insertion of spinal stimulator. He is now on amitriptyline. (3) Paroxysmal atrial fibrillation: Plan: Occurred early this morning and he spontaneously converted back to normal sinus rhythm. This apparently is the first episode. Thyroid studies are normal. Cardiac echo report is pending. Continue telemetry (4) Hypomagnesemia: Plan: He received parenteral replacement therapy. Will recheck magnesium level Plan Hopeful discharge back to home with heart monitor in the next day or 2 Admission and Anticipated Discharge Date Admission Date: February 16, 2025 Subjective Alert and oriented. No distress. He developed postherpetic neuralgia on the left thorax side in 2021 after having a zoster outbreak. He has had multiple treatments including spine stimulator, Lyrica, gabapentin, capsaicin cream. He has been started on amitriptyline this admission. Unfortunately, he had a paroxysmal episode of atrial fibrillation early this morning and has since spontaneously converted back to normal sinus rhythm. He has not noticed this in the past. Thyroid profile is normal. Cardiac echo is pending. Continue telemetry. He will need to wear a heart monitor at the time of discharge. Will not involve cardiology at this point unless cardiac echo is significantly abnormal. Review of Systems 2 Review of Systems: Constitutionalno fever or chills ENTno blurred vision, no double vision, no epistaxis, no sore throat Respiratoryno cough, no wheezing, no shortness of breath Cardiacno palpitations, no chest pain, no syncope Coy nausea, vomiting, diarrhea, melena, hematochezia GUno urinary retention, no urinary incontinence, no dysuria, no hematuria Musculoskeletalno joint pain, no muscle tenderness Skinno bruising, no rashes, no pruritus Neurono isolated weakness, no paresthesia, no weakness Psychno depression, no anxiety Physical Exam 2 Physical Exam: General-alert and oriented x3, no fever, no chills HEENT-head atraumatic and normocephalic, pupils equal and reactive to light, extraocular muscles intact Neck-no lymphadenopathy or thyromegaly, trachea midline Chest-clear to auscultation. No rales, wheezing or rhonchi Cardiac-regular rate and rhythm, normal S1 and S2 Abdomen-normal bowel sounds, no hepatosplenomegaly Extremities-no cyanosis, clubbing, or edema Neuro-cranial nerves II through XII intact, motor and sensory function within normal limits, strength symmetrical, no focal deficits Psych-normal affect, normal mood Results & Data Results & Data Vital Signs (Past 12 Hours) Vital Signs Temp Pulse Pulse Pulse Resp BP BP 02/16/25 11:26 36.5 C 68 18 96/59 L 02/16/25 07:32 36.4 C L 76 18 105/61 02/16/25 07:11 59 L 02/16/25 06:13 36.4 C L 102 H 18 155/92 H 02/16/25 03:00 36.7 C 58 L 18 125/75 02/16/25 02:35 58 L 02/16/25 01:30 88 18 131/94 02/16/25 01:00 81 22 145/90 H 02/16/25 00:45 75 20 139/90 02/16/25 00:31 71 02/16/25 00:30 78 24 147/89 H 02/16/25 00:10 83 18 117/88 02/16/25 00:05 58 L 20 137/81 02/16/25 00:00 65 16 141/87 H 02/15/25 23:55 62 20 137/91 02/15/25 23:50 67 18 130/90 02/15/25 23:45 63 24 124/85 02/15/25 23:40 68 24 123/84 Pulse Ox O2 Del Method O2 Flow Rate 02/16/25 11:26 94 Room Air 02/16/25 07:32 94 Room Air 02/16/25 07:11 02/16/25 06:13 94 Room Air 02/16/25 03:00 94 Room Air 02/16/25 02:35 02/16/25 01:30 92 Room Air 02/16/25 01:00 92 Room Air 02/16/25 00:45 95 Nasal Cannula 2 02/16/25 00:31 02/16/25 00:30 96 Nasal Cannula 2 02/16/25 00:10 96 Nasal Cannula 2 02/16/25 00:05 97 Nasal Cannula 2 02/16/25 00:00 97 Nasal Cannula 2 02/15/25 23:55 97 Nasal Cannula 2 02/15/25 23:50 96 Nasal Cannula 2 02/15/25 23:45 96 Nasal Cannula 2 02/15/25 23:40 97 Nasal Cannula 2 Laboratory Results 02/15/25 19:52 02/15/25 21:01 PG Care Time/CCT Total # of Minutes Spent Total Time Spent with Patient: Total time spent is greater than 50% in coordination of care (as documented) at patient's floor/unit and/or counseling patient: Coding Level of Care Code 31786 SUB INP/OBS CARE 3/50MIN Diagnoses Chronic pain syndrome G89.4 Postherpetic neuralgia B02.29 Paroxysmal atrial fibrillation I48.0 Hypomagnesemia E83.42
--- NOTE | 2025-02-16 13:16 | XCELERA ---
[id number]
--- NOTE | 2025-02-16 13:53 | Electrocardiogram Report ---
Test Reason : Blood Pressure : */* mmHG Vent. Rate : 72 BPM Atrial Rate : 72 BPM P-R Int : 168 ms QRS Dur : 92 ms QT Int : 394 ms P-R-T Axes : 37 -61 33 degrees QTcB Int : 431 ms Normal sinus rhythm Left anterior fascicular block Cannot rule out Inferior infarct (cited on or before 02-Oct-2024) Poor R wave progression, consider anterior [place] vs. lead placement vs. LVH Abnormal ECG When compared with ECG of 19-Dec-2024 11:41, No significant change was found Confirmed by Ronak Kelley ([id number]) on 02/16/2025 1:52:46 PM Referred By: REFERRED SELF Confirmed By: Ronak Kelley
--- NOTE | 2025-02-16 13:56 | Electrocardiogram Report ---
Test Reason : Blood Pressure : */* mmHG Vent. Rate : 91 BPM Atrial Rate : 91 BPM P-R Int : 158 ms QRS Dur : 86 ms QT Int : 360 ms P-R-T Axes : 50 -72 4 degrees QTcB Int : 442 ms Poor data quality, interpretation may be adversely affected Normal sinus rhythm Left anterior fascicular block Poor R wave progression, consider anterior [place] vs. lead placement vs. LVH Cannot rule out Inferior infarct (cited on or before 02-Oct-2024) Abnormal ECG When compared with ECG of 15-Feb-2025 20:15, (unconfirmed) ST now depressed in Anterolateral leads T wave inversion now evident in Anterior leads Confirmed by Ronak Kelley ([id number]) on 02/16/2025 1:56:05 PM Referred By: REFERRED SELF Confirmed By: Ronak Kelley
[2025-02-16] MEDS: MELATONIN 3 MG TAB PO PRN (20:32)
[2025-02-17 05:53] LABS: Basophils # (auto) 0.06 K/uL (0.00-0.20); Basophils % (auto) 0.7 %; Eosinophils # (auto) 0.45 K/uL (0.00-0.50); Eosinophils % (auto) 4.9 %; Hematocrit (blood only) 41.4 % (42.0-52.0); Immature Granulocytes # (auto) 0.03 K/uL (0.01-0.20); Immature Granulocytes % (auto) 0.3 %; Lymphocytes # (auto) 1.96 K/uL (1.20-3.40); Lymphocytes % (auto) 21.5 %; Mean Corpuscular Hemoglobin 31.3 pg (25.0-34.0); Mean Corpuscular Hgb Conc 33.8 g/dL (32.0-36.0); Mean Corpuscular Volume 92.4 fL (80.0-100.0); Mean Platelet Volume 9.5 fL (9.4-12.4); Monocytes # (auto) 1.39 K/uL (0.11-0.59); Monocytes % (auto) 15.2 %; Neutrophils # (auto) 5.23 K/uL (1.40-6.50); Neutrophils % (auto) 57.4 %; Platelet Count 446 K/uL (130-400); RDW Coefficient of Variation 14.1 % (11.5-14.5); RDW Standard Deviation 47.9 fL (36.4-46.3); Red Blood Count 4.48 M/uL (4.70-6.10); White Blood Count 9.12 K/ul (4.8-10.8)
[2025-02-17 06:09] LABS: BUN Creatinine Ratio 18.9 (10-20); Calcium 9.3 mg/dl (8.6-10.3); Creatinine Clr Calc Pharmacy 57.7 ml/min; Magnesium 2.3 mg/dl (1.7-2.4); Potassium 4.1 mmol/L (3.5-5.1)
[2025-02-17] MEDS: POLYETHYLENE (MIRALAX) 17 GM PACK PO PRN (07:30)
--- NOTE | 2025-02-17 11:01 | Discharge Summary ---
Discharge Summary Date of Service February 17, 2025 Principal Dx & Hospital Course #1 = Principal Diagnosis (1) Chronic pain syndrome: The patient states he has less pain left thorax area due to postherpetic neuralgia. He has had previous spine stimulator, Lyrica, gabapentin, capsaicin cream without apparent benefit. He came to the ED because the pain was so bad he was anorexic. He has now been placed on amitriptyline. This appears to be helping quite a bit (2) Postherpetic neuralgia: Producing chronic pain. He has had multiple therapeutic attempts including insertion of spinal stimulator. He is now on amitriptyline. This has helped quite a bit (3) Paroxysmal atrial fibrillation: Occurred early this morning and he spontaneously converted back to normal sinus rhythm. This apparently is the first episode. He spontaneously converted back to normal sinus rhythm and has not had any recurrence. Cardiac echo was unremarkable. He will see his PCP for scheduling of outpatient heart monitoring. Thyroid studies are normal. (4) Hypomagnesemia: Corrected with parenteral replacement therapy. Plan Home today, February 17 Admission HPI Per Admitting Provider Ki is a 64-year-old male with a past medical history of postherpetic neuralgia from a shingles outbreak in 2021 with residual pain in his left abdomen and flank recurrent and persistent with multiple modalities of treatment including spinal injections, Lyrica, and a spinal stimulator. Patient reports that he has had a flare of his pain which is too severe to function at home and presents for acute on chronic pain management. While in the ER he has received 2 doses of fentanyl and a dose of ketamine without enough improvement in his pain to allow daily function. He has been recommended for admission and pain management consultation. Ki is seen with his . Reports several years ago had a terrible case of shingles. Has had chronic pain since then had injections with [facility] has tried gabapentin, multiple pain medicine, compounded creams, lyrica without good control had a stimulator trial which did well initially but since placed has not been able to find an appropriate setting and felt sore, as soon as he would turn it one within 4 hours the pain would actually intensify and had to have it turned off. Was told to try and get to 4 days, but could not even get to 4 hours due to severe worsening of pain. Did discuss with the device rep Billy and was told to shut it off for a while. has not gotten better enough to trial it again. this morning about 4am pain has been severe enough to make him nauseous, has not been eating or drinkign in the last 2 days and feels very dehydrated. Feels the pain gets so bad he shakes, and has been nauseus from pain although denies actual stomach pain. Pain is at left LEFT back/flank and wraps around to the belly button. No change in location/distrubtion No fevers. Has been shaking from pain, but denies chills. Gets sweaty when th epain increases Pending an MRI for followup in March No chest pain No chest pressure No dyspnea Medical History: Reviewed Medications: Reviewed Surgical History: Reviewed Family history: Reviewed Allergies: Reviewed Social History: No tobacco, no ETOH Code Status: DNR/DNI Discharge Exam General-alert and oriented x3, no fever, no chills HEENT-head atraumatic and normocephalic, pupils equal and reactive to light, extraocular muscles intact Neck-no lymphadenopathy or thyromegaly, trachea midline Chest-clear to auscultation. No rales, wheezing or rhonchi Cardiac-regular rate and rhythm, normal S1 and S2 Abdomen-normal bowel sounds, no hepatosplenomegaly Extremities-no cyanosis, clubbing, or edema Neuro-cranial nerves II through XII intact, motor and sensory function within normal limits, strength symmetrical, no focal deficits Psych-normal affect, normal mood Discharge Plan Discharge Items Patient Disposition: Home - Self-Care Reason For Visit: POST-HERPATIC ACUTE ON CHRONIC PAIN Discharge Diagnosis: Chronic pain due to postherpetic neuralgia, hypomagnesemia, transient atrial fibrillation with spontaneous conversion back to normal sinus rhythm Condition on Discharge: Good Activity: Resume your previous activity Non-emergency contact: Primary Care Provider Call non-emergency contact if: your symptoms worsen Follow-up/Referrals: Taj Marcano MD [Primary Care Provider] - Diet: Regular and Heart Healthy Addtl Attending Provider Instructions: Amitriptyline 10 mg once a day prescription has been sent to [facility] pharmacy on . See primary care provider soon as possible to set up outpatient heart monitor Pending Studies at Discharge: No Stand-Alone Forms: My [employer], Smoking Cessation Medications and DC Order Prescriptions: New amitriptyline 10 mg Tablet 10 mg PO DAILY Qty: 30 0RF Caltrate 600 plus D 600 mg-20 mcg (800 unit) tablet,chewable 1 tab PO BID Qty: 60 0RF Continued pregabalin 200 mg capsule 200 mg PO Q12H Qty: 60 5RF lidocaine 5 % adhesive patch,medicated 1 patch topical DAILY Qty: 30 5RF Rx Instructions: leave on most painful area for up to 12 hrs, ok to put on before bed. naproxen [Naprosyn] 500 mg tablet 500 mg PO BID PRN (Reason: pain) Qty: 30 2RF acetaminophen 500 mg Tablet 1,000 mg PO Q6H PRN (Reason: Pain) Rx Instructions: Patient alternates between tylenol, lidocaine patches, and Aleve due to lasting pain from shingles. rosuvastatin 5 mg tablet 5 mg PO DAILY ondansetron 4 mg tablet,disintegrating 12 mg translingual .EVERY 24 HOURS Discharge Orders: Discharge Order (Routine); Ordered 02/17/25 Ordered By: Carlos A Cardozo Admission Data Admit Date/Time: 02/16/25 01:15 Attending Provider: Carlos A Cardozo Admit Provider: Panda Hess Primary Care Provider: Taj Marcano Other Providers: Panda Hess Hospital Stay Data Consultations 02/16/25 00:17 ED Decision to Admit Stat Diagnostic Imagining Performed 02/15/25 20:14 CT abd pelvis IV con only Stat Pending Results Patient Have Any Pending Studies at Discharge: No Discharge Instructions Given to Patient (Per Discharging Provider) Amitriptyline 10 mg once a day prescription has been sent to [facility] pharmacy on . See primary care provider soon as possible to set up outpatient heart monitor Total Time Total Time Spent Total Time Spent (In Minutes): 45-minute Coding Level of Care Code 70889 INP/OBS DISCH >30 MIN Diagnoses Chronic pain syndrome G89.4 Postherpetic neuralgia B02.29 Paroxysmal atrial fibrillation I48.0 Hypomagnesemia E83.42
[2025-02-17 12:12] VITALS: BP 107/66; PULSE 76; RESP 16; TEMP 97.5; O2SAT 90
[2025-02-17] MEDS: HYDROmorphone INJ 0.5 MG/0.5 ML SYR IV PRN (12:22)
== END 2025-02-17 13:14 | disposition home or self-care (01) ==
LOC: SUATTDRO → 2N 19:24 → ED 19:24 → SUATTDRO 02-16 01:15 → 2N 02-16 02:09